=== PATIENT | female | born 1940 | race Caucasian/White ===

== ENCOUNTER 2022-07-08 19:30 | Inpatient (IN) | payer MEDICARE ==
[2022-07-08] MEDS ORDERED: cloNIDine 0.1 MG TAB PO PRN (21:18)
[2022-07-08] MEDS ORDERED: Gabapentin 300 MG CAP PO PRN (21:20)
[2022-07-09] MEDS: HYDROcodone/Acetaminophen 10/325 mg Tablet PO PRN ×2 (02:29→06:09)
[2022-07-09 02:36] VITALS: BMI 34.5
[2022-07-09] MEDS ORDERED: Levothyroxine Sodium 50 MCG TAB PO SCH (06:00)
[2022-07-09] MEDS ORDERED: Dronedarone HCl 400 MG TAB PO SCH (08:00)
[2022-07-09] MEDS ORDERED: HYDROcodone/Acetaminophen 10/325 mg Tablet PO PRN (08:27)
[2022-07-09] MEDS ORDERED: Gabapentin 300 MG CAP PO PRN (08:27)
[2022-07-09] MEDS ORDERED: cloNIDine 0.1 MG TAB PO PRN (08:27)
[2022-07-09] MEDS ORDERED: Potassium Chloride 10 MEQ TAB PO SCH (09:00)
[2022-07-09] MEDS ORDERED: CO Q-10 CAPSULE 100 MG PO SCH (09:00)
[2022-07-09] MEDS ORDERED: Furosemide 20 MG TAB PO SCH (09:00)
[2022-07-09] MEDS ORDERED: Diltiazem HCl SR 60 mg Capsule PO SCH (09:00)
[2022-07-09] MEDS ORDERED: traMADol HCl 50 MG TAB PO SCH (09:00)
[2022-07-09] MEDS ORDERED: Multivitamin W/ Minerals 1 TAB PO SCH (09:00)
[2022-07-09] MEDS: Diltiazem HCl SR 60 mg Capsule PO SCH ×2 (11:01→20:16)
[2022-07-09] MEDS: CO Q-10 CAPSULE 100 MG PO SCH (11:01)
[2022-07-09] MEDS: Dronedarone HCl 400 MG TAB PO SCH ×2 (11:02→16:39)
[2022-07-09] MEDS: Furosemide 20 MG TAB PO SCH (11:03)
[2022-07-09] MEDS: Multivit, Therapeutic 1 TAB PO SCH (11:04)
[2022-07-09] MEDS: BIOTIN 5 MG PO SCH (11:05)
[2022-07-09] MEDS ORDERED: Bisacodyl 10 MG SUPP PR PRN (12:29)
[2022-07-09] MEDS ORDERED: Docusate 100 MG CAP PO SCH (13:15)
[2022-07-09] MEDS ORDERED: Polyethylene Glycol 3350 17 GM Packet PO SCH (13:30)
[2022-07-09] MEDS: Bisacodyl 5 MG TAB PO PRN (13:37)
[2022-07-09] MEDS: Rosuvastatin 10 MG TAB PO SCH (20:16)
[2022-07-09] MEDS ORDERED: Rosuvastatin 10 MG TAB PO SCH (21:00)
[2022-07-10] MEDS: traMADol HCl 50 MG TAB PO PRN (05:14)
[2022-07-10] MEDS: Levothyroxine Sodium 50 MCG TAB PO SCH (05:57)
[2022-07-10] MEDS: Polyethylene Glycol 3350 17 GM Packet PO SCH (08:20)
[2022-07-10] MEDS: Docusate 100 MG CAP PO SCH (08:21)
[2022-07-10] MEDS: Bisacodyl 5 MG TAB PO PRN (08:21)
[2022-07-10] MEDS: Diltiazem HCl SR 60 mg Capsule PO SCH ×2 (08:21→20:50)
[2022-07-10] MEDS: Multivit, Therapeutic 1 TAB PO SCH (08:22)
[2022-07-10] MEDS: Dronedarone HCl 400 MG TAB PO SCH ×2 (08:22→17:37)
[2022-07-10] MEDS: CO Q-10 CAPSULE 100 MG PO SCH (08:22)
[2022-07-10] MEDS: Furosemide 20 MG TAB PO SCH (08:23)
[2022-07-10] MEDS: POTASSIUM CHLORIDE 8 MEQ PO SCH (12:00)
[2022-07-10] MEDS: BIOTIN 5 MG PO SCH (12:49)
[2022-07-10] MEDS ORDERED: Milk Of Magnesia 30 ML UDCUP PO PRN (16:08)
[2022-07-10] MEDS: Rosuvastatin 10 MG TAB PO SCH (20:50)
[2022-07-11] MEDS: traMADol HCl 50 MG TAB PO PRN (04:21)
[2022-07-11] MEDS: Levothyroxine Sodium 50 MCG TAB PO SCH (05:15)
[2022-07-11] MEDS: Polyethylene Glycol 3350 17 GM Packet PO SCH (08:55)
[2022-07-11] MEDS: CO Q-10 CAPSULE 100 MG PO SCH (08:55)
[2022-07-11] MEDS: Bisacodyl 5 MG TAB PO PRN (08:55)
[2022-07-11] MEDS: Furosemide 20 MG TAB PO SCH (08:56)
[2022-07-11] MEDS: Docusate 100 MG CAP PO SCH (08:56)
[2022-07-11] MEDS: Dronedarone HCl 400 MG TAB PO SCH ×2 (08:56→17:27)
[2022-07-11] MEDS: Diltiazem HCl SR 60 mg Capsule PO SCH ×2 (08:56→20:54)
[2022-07-11] MEDS: Multivit, Therapeutic 1 TAB PO SCH (08:56)
[2022-07-11] MEDS: POTASSIUM CHLORIDE 8 MEQ PO SCH (08:57)
[2022-07-11] MEDS: BIOTIN 5 MG PO SCH (08:58)
[2022-07-11] MEDS: Rosuvastatin 10 MG TAB PO SCH (20:54)
[2022-07-12] MEDS: Levothyroxine Sodium 50 MCG TAB PO SCH (05:20)
[2022-07-12] MEDS: Polyethylene Glycol 3350 17 GM Packet PO SCH (08:37)
[2022-07-12] MEDS: Multivit, Therapeutic 1 TAB PO SCH (08:38)
[2022-07-12] MEDS: Bisacodyl 5 MG TAB PO PRN (08:38)
[2022-07-12] MEDS: Diltiazem HCl SR 60 mg Capsule PO SCH ×2 (08:38→20:16)
[2022-07-12] MEDS: CO Q-10 CAPSULE 100 MG PO SCH (08:38)
[2022-07-12] MEDS: Docusate 100 MG CAP PO SCH (08:38)
[2022-07-12] MEDS: Furosemide 20 MG TAB PO SCH (08:39)
[2022-07-12] MEDS: Dronedarone HCl 400 MG TAB PO SCH ×2 (08:39→16:32)
[2022-07-12] MEDS: POTASSIUM CHLORIDE 8 MEQ PO SCH (08:40)
[2022-07-12] MEDS: BIOTIN 5 MG PO SCH (08:42)
[2022-07-12] MEDS: Ondansetron ODT 4 MG TAB PO PRN (13:26)
[2022-07-12] MEDS: Rosuvastatin 10 MG TAB PO SCH (20:16)
[2022-07-13] MEDS: traMADol HCl 50 MG TAB PO PRN (05:09)
[2022-07-13] MEDS: Levothyroxine Sodium 50 MCG TAB PO SCH (05:09)
[2022-07-13] MEDS: CO Q-10 CAPSULE 100 MG PO SCH (08:43)
[2022-07-13] MEDS: Diltiazem HCl SR 60 mg Capsule PO SCH ×2 (08:43→20:21)
[2022-07-13] MEDS: Polyethylene Glycol 3350 17 GM Packet PO SCH (08:43)
[2022-07-13] MEDS: Dronedarone HCl 400 MG TAB PO SCH ×2 (08:44→17:01)
[2022-07-13] MEDS: Multivit, Therapeutic 1 TAB PO SCH (08:44)
[2022-07-13] MEDS: Docusate 100 MG CAP PO SCH (08:44)
[2022-07-13] MEDS: Furosemide 20 MG TAB PO SCH (08:44)
[2022-07-13] MEDS: POTASSIUM CHLORIDE 8 MEQ PO SCH (08:45)
[2022-07-13] MEDS: BIOTIN 5 MG PO SCH (08:45)
[2022-07-13] MEDS: Rosuvastatin 10 MG TAB PO SCH (20:21)
[2022-07-14] MEDS: Levothyroxine Sodium 50 MCG TAB PO SCH (05:20)
[2022-07-14] MEDS: Multivit, Therapeutic 1 TAB PO SCH (08:39)
[2022-07-14] MEDS: Dronedarone HCl 400 MG TAB PO SCH ×2 (08:39→18:00)
[2022-07-14] MEDS: Docusate 100 MG CAP PO SCH (08:39)
[2022-07-14] MEDS: CO Q-10 CAPSULE 100 MG PO SCH (08:39)
[2022-07-14] MEDS: Diltiazem HCl SR 60 mg Capsule PO SCH ×2 (08:39→20:32)
[2022-07-14] MEDS: Furosemide 20 MG TAB PO SCH (08:39)
[2022-07-14] MEDS: Polyethylene Glycol 3350 17 GM Packet PO SCH (08:40)
[2022-07-14] MEDS: POTASSIUM CHLORIDE 8 MEQ PO SCH (08:40)
[2022-07-14] MEDS: BIOTIN 5 MG PO SCH ×2 (08:40→20:34)
[2022-07-14] MEDS: Ondansetron ODT 4 MG TAB PO PRN (12:17)
[2022-07-14] MEDS ORDERED: traMADol HCl 50 MG TAB PO PRN (12:58)
[2022-07-14] MEDS ORDERED: HYDROcodone/Acetaminophen 10/325 mg Tablet PO PRN (12:59)
[2022-07-14] MEDS: Rosuvastatin 10 MG TAB PO SCH (20:32)
[2022-07-15] MEDS: HYDROcodone/Acetaminophen 10/325 mg Tablet PO PRN (02:12)
[2022-07-15] MEDS: Levothyroxine Sodium 50 MCG TAB PO SCH (05:26)
[2022-07-15] MEDS: Polyethylene Glycol 3350 17 GM Packet PO SCH (08:38)
[2022-07-15] MEDS: Bisacodyl 5 MG TAB PO PRN (08:38)
[2022-07-15] MEDS: CO Q-10 CAPSULE 100 MG PO SCH (08:39)
[2022-07-15] MEDS: Diltiazem HCl SR 60 mg Capsule PO SCH ×2 (08:39→20:50)
[2022-07-15] MEDS: POTASSIUM CHLORIDE 8 MEQ PO SCH (08:39)
[2022-07-15] MEDS: Furosemide 20 MG TAB PO SCH (08:40)
[2022-07-15] MEDS: Multivit, Therapeutic 1 TAB PO SCH (08:40)
[2022-07-15] MEDS: Dronedarone HCl 400 MG TAB PO SCH ×2 (08:40→18:07)
[2022-07-15] MEDS: Docusate 100 MG CAP PO SCH (08:40)
[2022-07-15] MEDS ORDERED: Rivaroxaban 10 MG TAB PO SCH (18:45)
[2022-07-15] MEDS: Rosuvastatin 10 MG TAB PO SCH (20:50)
[2022-07-15] MEDS: BIOTIN 5 MG PO SCH (20:50)
[2022-07-16] MEDS: Levothyroxine Sodium 50 MCG TAB PO SCH (05:27)
[2022-07-16] MEDS: POTASSIUM CHLORIDE 8 MEQ PO SCH (08:09)
[2022-07-16] MEDS: Bisacodyl 5 MG TAB PO PRN (08:10)
[2022-07-16] MEDS: Diltiazem HCl SR 60 mg Capsule PO SCH ×2 (08:10→20:38)
[2022-07-16] MEDS: CO Q-10 CAPSULE 100 MG PO SCH (08:10)
[2022-07-16] MEDS: Polyethylene Glycol 3350 17 GM Packet PO SCH (08:10)
[2022-07-16] MEDS: Dronedarone HCl 400 MG TAB PO SCH ×2 (08:10→17:33)
[2022-07-16] MEDS: Multivit, Therapeutic 1 TAB PO SCH (08:11)
[2022-07-16] MEDS: Furosemide 20 MG TAB PO SCH (08:11)
[2022-07-16] MEDS: Docusate 100 MG CAP PO SCH (08:11)
[2022-07-16] MEDS: Rivaroxaban 10 MG TAB PO SCH (17:33)
[2022-07-16] MEDS: Rosuvastatin 10 MG TAB PO SCH (20:38)
[2022-07-16] MEDS: BIOTIN 5 MG PO SCH (20:38)
[2022-07-16] MEDS: HYDROcodone/Acetaminophen 10/325 mg Tablet PO PRN (22:26)
[2022-07-17 05:36] LABS: Hemoglobin 12.5 g/dL (12.0-16.0); Platelet Count 351 10x3/uL (130-400)
[2022-07-17] MEDS: Levothyroxine Sodium 50 MCG TAB PO SCH (06:23)
[2022-07-17] MEDS: CO Q-10 CAPSULE 100 MG PO SCH (09:11)
[2022-07-17] MEDS: Dronedarone HCl 400 MG TAB PO SCH ×2 (09:11→17:33)
[2022-07-17] MEDS: Diltiazem HCl SR 60 mg Capsule PO SCH ×2 (09:12→21:42)
[2022-07-17] MEDS: Multivit, Therapeutic 1 TAB PO SCH (09:12)
[2022-07-17] MEDS: Furosemide 20 MG TAB PO SCH (09:12)
[2022-07-17] MEDS: POTASSIUM CHLORIDE 8 MEQ PO SCH (09:13)
[2022-07-17] MEDS: Polyethylene Glycol 3350 17 GM Packet PO SCH (09:17)
[2022-07-17] MEDS: Docusate 100 MG CAP PO SCH (09:17)
[2022-07-17] MEDS: Rivaroxaban 10 MG TAB PO SCH (17:33)
[2022-07-17] MEDS: BIOTIN 5 MG PO SCH (21:42)
[2022-07-17] MEDS: Rosuvastatin 10 MG TAB PO SCH (21:42)
[2022-07-18] MEDS: Levothyroxine Sodium 50 MCG TAB PO SCH (06:15)
[2022-07-18] MEDS: CO Q-10 CAPSULE 100 MG PO SCH (08:24)
[2022-07-18] MEDS: Dronedarone HCl 400 MG TAB PO SCH ×2 (08:24→17:56)
[2022-07-18] MEDS: Diltiazem HCl SR 60 mg Capsule PO SCH ×2 (08:24→20:49)
[2022-07-18] MEDS: Furosemide 20 MG TAB PO SCH (08:24)
[2022-07-18] MEDS: Multivit, Therapeutic 1 TAB PO SCH (08:24)
[2022-07-18] MEDS: Docusate 100 MG CAP PO SCH (08:24)
[2022-07-18] MEDS: POTASSIUM CHLORIDE 8 MEQ PO SCH (08:24)
[2022-07-18] MEDS: Polyethylene Glycol 3350 17 GM Packet PO SCH (08:25)
[2022-07-18] MEDS: Rivaroxaban 10 MG TAB PO SCH (17:56)
[2022-07-18] MEDS: BIOTIN 5 MG PO SCH (20:48)
[2022-07-18] MEDS: Rosuvastatin 10 MG TAB PO SCH (20:49)
[2022-07-18] MEDS: Melatonin 3 MG TAB PO PRN (20:49)
[2022-07-18] MEDS: Acetaminophen 325 MG TAB PO PRN (20:50)
[2022-07-19] MEDS: Levothyroxine Sodium 50 MCG TAB PO SCH (05:35)
[2022-07-19] MEDS: POTASSIUM CHLORIDE 8 MEQ PO SCH (09:11)
[2022-07-19] MEDS: Docusate 100 MG CAP PO SCH ×2 (09:13→09:15)
[2022-07-19] MEDS: Multivit, Therapeutic 1 TAB PO SCH (09:13)
[2022-07-19] MEDS: Polyethylene Glycol 3350 17 GM Packet PO SCH (09:13)
[2022-07-19] MEDS: Dronedarone HCl 400 MG TAB PO SCH ×2 (09:13→18:03)
[2022-07-19] MEDS: Furosemide 20 MG TAB PO SCH (09:13)
[2022-07-19] MEDS: CO Q-10 CAPSULE 100 MG PO SCH (09:13)
[2022-07-19] MEDS: Diltiazem HCl SR 60 mg Capsule PO SCH ×2 (09:13→21:21)
[2022-07-19] MEDS: Rivaroxaban 10 MG TAB PO SCH (18:03)
[2022-07-19] MEDS: BIOTIN 5 MG PO SCH (21:21)
[2022-07-19] MEDS: Rosuvastatin 10 MG TAB PO SCH (21:21)
[2022-07-19] MEDS: Acetaminophen 325 MG TAB PO PRN (21:23)
[2022-07-19] MEDS: Melatonin 3 MG TAB PO PRN (21:24)
[2022-07-20] MEDS: Levothyroxine Sodium 50 MCG TAB PO SCH (05:39)
[2022-07-20] MEDS: POTASSIUM CHLORIDE 8 MEQ PO SCH (08:05)
[2022-07-20] MEDS: Diltiazem HCl SR 60 mg Capsule PO SCH ×3 (08:06→21:52)
[2022-07-20] MEDS: Multivit, Therapeutic 1 TAB PO SCH (08:06)
[2022-07-20] MEDS: CO Q-10 CAPSULE 100 MG PO SCH (08:06)
[2022-07-20] MEDS: Dronedarone HCl 400 MG TAB PO SCH ×2 (08:06→18:02)
[2022-07-20] MEDS: Docusate 100 MG CAP PO SCH (08:07)
[2022-07-20] MEDS: Furosemide 20 MG TAB PO SCH (08:07)
[2022-07-20] MEDS: Polyethylene Glycol 3350 17 GM Packet PO SCH (08:07)
[2022-07-20] MEDS: Rivaroxaban 10 MG TAB PO SCH (18:02)
[2022-07-20] MEDS: Rosuvastatin 10 MG TAB PO SCH ×2 (21:28→21:52)
[2022-07-20] MEDS: BIOTIN 5 MG PO SCH (21:28)
[2022-07-21] MEDS: Levothyroxine Sodium 50 MCG TAB PO SCH (05:19)
[2022-07-21 05:29] VITALS: BP 130/76; TEMP 97.9
[2022-07-21] MEDS: CO Q-10 CAPSULE 100 MG PO SCH (08:22)
[2022-07-21] MEDS: POTASSIUM CHLORIDE 8 MEQ PO SCH (08:22)
[2022-07-21] MEDS: Docusate 100 MG CAP PO SCH (08:23)
[2022-07-21] MEDS: Furosemide 20 MG TAB PO SCH (08:23)
[2022-07-21] MEDS: Multivit, Therapeutic 1 TAB PO SCH (08:23)
[2022-07-21] MEDS: Diltiazem HCl SR 60 mg Capsule PO SCH (08:23)
[2022-07-21] MEDS: Polyethylene Glycol 3350 17 GM Packet PO SCH (08:23)
[2022-07-21] MEDS: Dronedarone HCl 400 MG TAB PO SCH (09:15)
== END 2022-07-21 09:30 | disposition home or self-care (01) | DRG 92 ==
LOC: BURMED 19:30
PROVIDERS: ADMIT Family Medicine; ATTEND Family Medicine
DX: R26.89 Other abnormalities of gait and mobility (principal); I48.20 Chronic atrial fibrillation, unspecified; R53.1 Weakness; I10 Essential (primary) hypertension; E78.5 Hyperlipidemia, unspecified; Z20.822 Contact with and (suspected) exposure to COVID-19; Z98.890 Other specified postprocedural states
CPT/HCPCS: 36415; 36416; 82565; 85014; 85018; 85049; Q0162; U0003; U0005